=== PATIENT | male | born 1950 | race Caucasian/White ===

== ENCOUNTER 2019-08-13 15:11 | Inpatient (IN) | payer BC ==
[~2019-08-13] VITALS: Ht 172.7 cm; Wt 97.0 kg
--- NOTE | 2019-08-13 16:21 | NUR ---
Pt brought back to room in wheelchair, changed into gown and transferred to [facility]. Dr Jack at bedside and discussed plan of care with pt. Obtaining blood work, radiology completed, pt to be admitted and vascular specialist consult requested. Pt given warm blanket for comfort and call light within reach. Family at bedside. RASHAWN RN to obtain IV access and administer meds as ordered. MAMADOU.
[2019-08-13] MEDS ORDERED: PIPERACILLIN/TAZO/PMX 3.375GM 50 ML ONE (16:27)
[2019-08-13] MEDS ORDERED: PIPERACILLIN/TAZO/PMX 3.375GM 50 ML IVPB ONE (16:30)
[2019-08-13] MEDS ORDERED: SODIUM CHLORIDE FLUSH 10ML SYR IVF ONE (16:30)
[2019-08-13 16:35] LABS: BASOPHILS # (AUTO) 0.06 x10^3/uL (0-0.1); BASOPHILS % (AUTO) 0 % (0-1); EOSINOPHILS # (AUTO) 0.08 x10^3/uL (0-0.4); EOSINOPHILS % (AUTO) 1 % (1-7); LYMPHOCYTES # (AUTO) 1.66 x10^3/uL (1-3.4); LYMPHOCYTES % (AUTO) 13 % (22-44); MD NO; MEAN CORPUSCULAR HEMOGLOBIN 29.8 pg (27.5-34.5); MEAN CORPUSCULAR VOLUME 90.2 fL (81-97); MEAN PLATELET VOLUME 7.9 fL (7.4-10.4); MONOCYTES # (AUTO) 1.03 x10^3/uL (0.2-0.8); MONOCYTES % (AUTO) 8 % (2-9); NEUTROPHILS # (AUTO) 9.98 x10^3/uL (1.8-6.8); NEUTROPHILS % (AUTO) 78 % (42-75); PLATELET COUNT 327 x10^3/uL (130-400); RED BLOOD COUNT 4.87 x10^6/uL (4.38-5.82); RED CELL DISTRIBUTION WIDTH 13.4 % (9.4-14.8)
[2019-08-13 16:40] LABS: INTERNATIONAL NORMALIZED RATIO 1.16 (0.93-1.1); PROTHROMBIN TIME 12.3 Seconds (9.6-11.5)
[2019-08-13 16:42] LABS: ALBUMIN 2.9 g/dL (3.4-5.0); ANION GAP 8 mmol/L (5-15); CALCIUM 8.9 mg/dL (8.5-10.1); CHLORIDE 106 mmol/L (98-107); HCT (SEDRATE) 43.9 % (39.2-51.8)
[2019-08-13 16:49] LABS: CREATININE 1.11 mg/dL (0.7-1.3)
[2019-08-13] MEDS ORDERED: NICOTINE 14MG/24 HR PATCH.TD24 TD ONE (17:00)
[2019-08-13] MEDS ORDERED: ONDANSETRON ODT 4 MG PO PRN (17:30)
[2019-08-13] MEDS: NICOTINE 14MG/24 HR PATCH.TD24 TD SCH (17:30)
[2019-08-13] MEDS ORDERED: ONDANSETRON 2MG/ML, 2ML IVPush PRN (17:30)
--- NOTE | 2019-08-13 17:44 | NUR ---
Pt resting in [facility], [facility], denies additional needs at this time. Even chest rise and fall, watching the television. Pt is waiting for admit bed on medical floor. WCTM.
--- NOTE | 2019-08-13 17:50 | NUR ---
Report given to Tiffani TRIPP. Pt ready to trasnfer up to floor at this time. NAD, no additional needs. WCTM.
[2019-08-13] MEDS ORDERED: CARV-39 PO ×2 (18:14)
[2019-08-13] MEDS ORDERED: ATOR40TA78 PO (18:14)
[2019-08-13] MEDS ORDERED: CLOP75TA PO (18:14)
[2019-08-13] MEDS ORDERED: LISI-170 PO (18:14)
[2019-08-13] MEDS ORDERED: AMLO-150 PO (18:14)
[2019-08-13] MEDS ORDERED: ASPI81TA45 PO (18:14)
[2019-08-13] MEDS: SODIUM CHLORIDE 0.9% 1,000 ML IV SCH (18:27)
[2019-08-13 18:29] VITALS: BP 129/60
[2019-08-13] MEDS: ACETAMINOPHEN 325 MG TABLET PO PRN (18:39)
[2019-08-13] MEDS: NYSTATIN TOPICAL POWDER 15GM TP SCH (21:00)
[2019-08-13] MEDS: CLINDAMYCIN PMX 900MG/50ML 50 ML IV SCH (21:13)
[2019-08-13 21:20] VITALS: BP 145/71
[2019-08-13] MEDS: PIPERACILLIN/TAZO/PMX 3.375GM 50 ML IV SCH (22:30)
[2019-08-14] MEDS: DIPHENHYDRAMINE 25 MG CAPSULE PO PRN ×2 (00:29→20:39)
[2019-08-14] MEDS: ACETAMINOPHEN 325 MG TABLET PO PRN (00:29)
[2019-08-14 02:18] VITALS: BP 125/67
[2019-08-14] MEDS: CLINDAMYCIN PMX 900MG/50ML 50 ML IV SCH ×3 (05:08→22:54)
[2019-08-14 05:28] LABS: BASOPHILS # (AUTO) 0.02 x10^3/uL (0-0.1); BASOPHILS % (AUTO) 0 % (0-1); EOSINOPHILS # (AUTO) 0.26 x10^3/uL (0-0.4); EOSINOPHILS % (AUTO) 3 % (1-7); LYMPHOCYTES # (AUTO) 2.18 x10^3/uL (1-3.4); LYMPHOCYTES % (AUTO) 20 % (22-44); MD NO; MEAN CORPUSCULAR HEMOGLOBIN 30.3 pg (27.5-34.5); MEAN CORPUSCULAR HGB CONC 33.4 g/dL (33.2-36.2); MEAN CORPUSCULAR VOLUME 90.5 fL (81-97); MEAN PLATELET VOLUME 8.1 fL (7.4-10.4); MONOCYTES # (AUTO) 0.97 x10^3/uL (0.2-0.8); MONOCYTES % (AUTO) 9 % (2-9); NEUTROPHILS # (AUTO) 7.28 x10^3/uL (1.8-6.8); NEUTROPHILS % (AUTO) 68 % (42-75); PLATELET COUNT 277 x10^3/uL (130-400); RED BLOOD COUNT 4.15 x10^6/uL (4.38-5.82); RED CELL DISTRIBUTION WIDTH 13.3 % (9.4-14.8)
[2019-08-14 05:45] LABS: ALANINE AMINOTRANSFERASE 69 U/L (12-78); ALBUMIN 2.4 g/dL (3.4-5.0); ANION GAP 6 mmol/L (5-15); CALCIUM 8.2 mg/dL (8.5-10.1); CHLORIDE 108 mmol/L (98-107); CREATININE 1.14 mg/dL (0.7-1.3)
[2019-08-14 05:57] LABS: ALKALINE PHOSPHATASE 82 U/L (45-117); BILIRUBIN,TOTAL 0.4 mg/dL (0.2-1.0); CHOL/HDL RATIO 3.2; CHOLESTEROL, TOTAL 79 mg/dL (140-239); HDL CHOL % 32 % (26-37); HDL CHOLESTEROL (DIRECT) 25 mg/dL (40-60); LDL CHOLESTEROL,CALCULATED 39 mg/dL (54-169); LDL/HDL RATIO 1.6 (0.5-3.0); TOTAL PROTEIN 6.6 g/dL (6.4-8.2); TRIGLYCERIDES 77 mg/dL (50-200); VLDL CHOLESTEROL 15 mg/dL (0-25)
[2019-08-14] MEDS: PIPERACILLIN/TAZO/PMX 3.375GM 50 ML IV SCH ×3 (06:15→18:11)
[2019-08-14 07:30] VITALS: BP 111/63
[2019-08-14] MEDS ORDERED: GADOTERATE 10 MMOL/20 ML SYR ONE (09:00)
[2019-08-14] MEDS: NYSTATIN TOPICAL POWDER 15GM TP SCH ×2 (09:00→21:00)
[2019-08-14] MEDS: INSULIN LISPRO 100 UNITS/ML, PEN SQ-INSULIN SCH ×3 (11:00→21:00)
[2019-08-14] MEDS ORDERED: FENTANYL PF 100 MCG/2ML ONE (13:24)
[2019-08-14] MEDS ORDERED: MIDAZOLAM 1 MG/ML, 5ML ONE (13:24)
[2019-08-14] MEDS ORDERED: FLUMAZENIL 0.1 MG/1 ML, 5ML ONE ×2 (13:24)
[2019-08-14] MEDS ORDERED: NALOXONE 1 MG/ML, 2ML ONE (13:25)
[2019-08-14] MEDS ORDERED: HEPARIN 1,000 UNITS/ML, 10ML ONE (13:25)
[2019-08-14] MEDS ORDERED: PROTAMINE SULFATE 10 MG/ML, 25ML ONE (13:25)
[2019-08-14] MEDS: SODIUM CHLORIDE 0.9% 1,000 ML IV SCH ×3 (13:30→17:04)
[2019-08-14] MEDS ORDERED: LIDOCAINE 1%, 10ML ONE (13:49)
[2019-08-14 15:33] VITALS: BP 130/77
[2019-08-14] MEDS: NICOTINE 14MG/24 HR PATCH.TD24 TD SCH (16:12)
[2019-08-14 20:30] VITALS: BP 150/76
[2019-08-14] MEDS ORDERED: CARVEDILOL 25 MG TABLET PO SCH (21:00)
[2019-08-15] MEDS: PIPERACILLIN/TAZO/PMX 3.375GM 50 ML IV SCH ×4 (00:05→18:15)
[2019-08-15 00:52] VITALS: BP 114/69
[2019-08-15] MEDS: SODIUM CHLORIDE 0.9% 1,000 ML IV SCH ×3 (03:00→23:00)
[2019-08-15 05:27] LABS: BASOPHILS # (AUTO) 0.01 x10^3/uL (0-0.1); BASOPHILS % (AUTO) 0 % (0-1); EOSINOPHILS # (AUTO) 0.24 x10^3/uL (0-0.4); EOSINOPHILS % (AUTO) 3 % (1-7); LYMPHOCYTES # (AUTO) 1.07 x10^3/uL (1-3.4); LYMPHOCYTES % (AUTO) 12 % (22-44); MD NO; MEAN CORPUSCULAR HGB CONC 33.5 g/dL (33.2-36.2); MEAN CORPUSCULAR VOLUME 89.6 fL (81-97); MEAN PLATELET VOLUME 8.1 fL (7.4-10.4); MONOCYTES # (AUTO) 0.76 x10^3/uL (0.2-0.8); MONOCYTES % (AUTO) 9 % (2-9); NEUTROPHILS # (AUTO) 6.82 x10^3/uL (1.8-6.8); NEUTROPHILS % (AUTO) 77 % (42-75); PLATELET COUNT 265 x10^3/uL (130-400); RED BLOOD COUNT 4.24 x10^6/uL (4.38-5.82); RED CELL DISTRIBUTION WIDTH 13.4 % (9.4-14.8)
[2019-08-15 05:34] LABS: ANION GAP 6 mmol/L (5-15); CALCIUM 8.3 mg/dL (8.5-10.1); CHLORIDE 108 mmol/L (98-107)
[2019-08-15 05:36] LABS: CREATININE 1.04 mg/dL (0.7-1.3)
[2019-08-15] MEDS: INSULIN LISPRO 100 UNITS/ML, PEN SQ-INSULIN SCH ×4 (05:46→21:00)
[2019-08-15] MEDS: NICOTINE 14MG/24 HR PATCH.TD24 TD SCH (06:11)
[2019-08-15] MEDS: NYSTATIN TOPICAL POWDER 15GM TP SCH ×2 (06:12→20:57)
[2019-08-15] MEDS: ACETAMINOPHEN 325 MG TABLET PO PRN ×2 (06:37→20:56)
[2019-08-15] MEDS: CLINDAMYCIN PMX 900MG/50ML 50 ML IV SCH ×3 (07:19→23:14)
[2019-08-15 07:22] VITALS: BP 91/58
[2019-08-15] MEDS ORDERED: AMLODIPINE 5 MG TABLET PO SCH ×2 (09:00→21:00)
[2019-08-15] MEDS ORDERED: CLOPIDOGREL 75 MG TABLET PO SCH (09:00)
[2019-08-15] MEDS ORDERED: ATORVASTATIN 40 MG TABLET PO SCH (09:00)
[2019-08-15] MEDS ORDERED: ASPIRIN 81 MG TABLET EC PO SCH (09:00)
[2019-08-15] MEDS ORDERED: LISINOPRIL 20 MG TABLET PO SCH (09:00)
[2019-08-15] MEDS ORDERED: SODIUM CHLORIDE 0.9%, 250ML IVBOLUS ONE (09:30)
[2019-08-15 12:36] VITALS: BP 120/73
[2019-08-15] MEDS ORDERED: BISACODYL 10 MG SUPP PR PRN (18:00)
[2019-08-15] MEDS ORDERED: POLYETHYLENE GLYCOL 17 GM PACKET PO PRN (18:00)
[2019-08-15 20:37] VITALS: BP 129/67
[2019-08-15] MEDS: METHOCARBAMOL 500 MG TABLET PO PRN (20:54)
[2019-08-15] MEDS: DIPHENHYDRAMINE 25 MG CAPSULE PO PRN (20:54)
[2019-08-15] MEDS: ATORVASTATIN 40 MG TABLET PO SCH (20:55)
[2019-08-15] MEDS: CARVEDILOL 25 MG TABLET PO SCH (20:55)
[2019-08-15] MEDS: CLOPIDOGREL 75 MG TABLET PO SCH (20:55)
[2019-08-15] MEDS ORDERED: SENNA/DOCUSATE TABLET PO PRN (21:00)
[2019-08-15] MEDS: ASPIRIN 81 MG TABLET EC PO SCH (21:00)
[2019-08-16] MEDS: PIPERACILLIN/TAZO/PMX 3.375GM 50 ML IV SCH ×4 (00:38→22:12)
[2019-08-16 01:25] VITALS: BP 98/52
[2019-08-16 05:29] LABS: BASOPHILS # (AUTO) 0.02 x10^3/uL (0-0.1); BASOPHILS % (AUTO) 0 % (0-1); EOSINOPHILS # (AUTO) 0.27 x10^3/uL (0-0.4); EOSINOPHILS % (AUTO) 3 % (1-7); LYMPHOCYTES # (AUTO) 0.77 x10^3/uL (1-3.4); LYMPHOCYTES % (AUTO) 9 % (22-44); MD NO; MEAN CORPUSCULAR HEMOGLOBIN 29.7 pg (27.5-34.5); MEAN CORPUSCULAR HGB CONC 33.2 g/dL (33.2-36.2); MEAN CORPUSCULAR VOLUME 89.6 fL (81-97); MONOCYTES # (AUTO) 0.85 x10^3/uL (0.2-0.8); MONOCYTES % (AUTO) 10 % (2-9); NEUTROPHILS # (AUTO) 6.88 x10^3/uL (1.8-6.8); NEUTROPHILS % (AUTO) 78 % (42-75); PLATELET COUNT 252 x10^3/uL (130-400); RED BLOOD COUNT 4.04 x10^6/uL (4.38-5.82); RED CELL DISTRIBUTION WIDTH 13.4 % (9.4-14.8)
[2019-08-16 05:39] LABS: ANION GAP 8 mmol/L (5-15); CALCIUM 8.1 mg/dL (8.5-10.1); CHLORIDE 110 mmol/L (98-107)
[2019-08-16 05:49] LABS: CREATININE 1.12 mg/dL (0.7-1.3)
[2019-08-16] MEDS: INSULIN LISPRO 100 UNITS/ML, PEN SQ-INSULIN SCH ×4 (06:40→21:00)
[2019-08-16 07:12] VITALS: BP 123/77
[2019-08-16 08:00] VITALS: BP 119/74
[2019-08-16] MEDS: CARVEDILOL 25 MG TABLET PO SCH ×2 (08:09→22:13)
[2019-08-16] MEDS: METHOCARBAMOL 500 MG TABLET PO PRN (08:48)
[2019-08-16] MEDS: CLINDAMYCIN PMX 900MG/50ML 50 ML IV SCH ×2 (08:49→16:00)
[2019-08-16] MEDS ORDERED: LISINOPRIL 20 MG TABLET PO SCH (09:00)
[2019-08-16] MEDS: LACTATED RINGERS 1,000 ML IV SCH ×2 (11:53→17:30)
[2019-08-16] MEDS: NYSTATIN TOPICAL POWDER 15GM TP SCH ×2 (11:54→22:14)
[2019-08-16] MEDS ORDERED: LIDOCAINE 1%, 20ML ONE ×2 (14:24→18:41)
[2019-08-16] MEDS ORDERED: PROTAMINE SULFATE 10 MG/ML, 5ML ONE (14:24)
[2019-08-16] MEDS ORDERED: THROMBIN 5,000 UNIT VIAL TP ONE ×2 (14:24→18:32)
[2019-08-16] MEDS ORDERED: BACITRACIN 50,000 UNIT ONE (14:24)
[2019-08-16] MEDS ORDERED: HEPARIN 1,000 UNITS/ML, 10ML ONE ×2 (14:24→16:29)
[2019-08-16] MEDS ORDERED: CEFAZOLIN 1,000 MG ONE (15:10)
[2019-08-16] MEDS ORDERED: PROPOFOL 10 MG/ML, 20ML ONE (15:10)
[2019-08-16] MEDS ORDERED: ROCURONIUM 10MG/ML,5ML ONE (15:10)
[2019-08-16] MEDS ORDERED: FENTANYL PF 250 MCG/5ML ONE (15:12)
[2019-08-16] MEDS ORDERED: FENTANYL PF 100 MCG/2ML ONE ×2 (19:10→19:49)
[2019-08-16] MEDS ORDERED: OXYcodone 5 MG/5 ML ORAL.SOL UDC ONE ×2 (19:49→19:50)
[2019-08-16] MEDS ORDERED: HYDROmorphone 1 MG/ML, 1ML INJ ONE (19:49)
[2019-08-16] MEDS ORDERED: HYDROmorphone 2 MG/ML, 1ML IVPush PRN (20:00)
[2019-08-16] MEDS ORDERED: FENTANYL PF 100 MCG/2ML IV PRN (20:00)
[2019-08-16] MEDS ORDERED: OXYcodone 5 MG/5 ML ORAL.SOL UDC PO PRN (20:00)
[2019-08-16] MEDS ORDERED: ACETAMINOPHEN 325 MG TABLET PO PRN (21:30)
[2019-08-16] MEDS ORDERED: FENTANYL PF 100 MCG/2ML IVPush PRN (21:30)
[2019-08-16] MEDS ORDERED: ONDANSETRON 2MG/ML, 2ML IV PRN (21:30)
[2019-08-16] MEDS ORDERED: PROMETHAZINE 25 MG/ML, 1ML IM PRN (21:30)
[2019-08-16] MEDS: ENOXAPARIN 40 MG/0.4 ML SQ SCH (22:11)
[2019-08-16] MEDS: CLOPIDOGREL 75 MG TABLET PO SCH (22:13)
[2019-08-16] MEDS: ASPIRIN 81 MG TABLET EC PO SCH (22:13)
[2019-08-16] MEDS: ATORVASTATIN 40 MG TABLET PO SCH (22:13)
[2019-08-16] MEDS: NICOTINE 14MG/24 HR PATCH.TD24 TD SCH (22:13)
[2019-08-17] MEDS: CLINDAMYCIN PMX 900MG/50ML 50 ML IV SCH ×3 (00:06→15:40)
[2019-08-17 01:07] VITALS: BP 94/59
[2019-08-17] MEDS: PIPERACILLIN/TAZO/PMX 3.375GM 50 ML IV SCH ×4 (04:01→21:57)
[2019-08-17 04:33] VITALS: BP 91/54
[2019-08-17 05:16] LABS: ALBUMIN 1.9 g/dL (3.4-5.0); ANION GAP 6 mmol/L (5-15); CALCIUM 7.7 mg/dL (8.5-10.1); CHLORIDE 110 mmol/L (98-107); CREATININE 1.02 mg/dL (0.7-1.3)
[2019-08-17 05:36] LABS: BASOPHILS % (AUTO) 0 % (0-1); EOSINOPHILS # (AUTO) 0.09 x10^3/uL (0-0.4); EOSINOPHILS % (AUTO) 1 % (1-7); LYMPHOCYTES # (AUTO) 0.71 x10^3/uL (1-3.4); LYMPHOCYTES % (AUTO) 6 % (22-44); MD NO; MEAN CORPUSCULAR HGB CONC 33.1 g/dL (33.2-36.2); MEAN CORPUSCULAR VOLUME 90.6 fL (81-97); MONOCYTES # (AUTO) 0.64 x10^3/uL (0.2-0.8); MONOCYTES % (AUTO) 5 % (2-9); NEUTROPHILS # (AUTO) 10.85 x10^3/uL (1.8-6.8); NEUTROPHILS % (AUTO) 88 % (42-75); PLATELET COUNT 226 x10^3/uL (130-400); RED BLOOD COUNT 3.49 x10^6/uL (4.38-5.82); RED CELL DISTRIBUTION WIDTH 13.3 % (9.4-14.8)
[2019-08-17 06:50] VITALS: BP 90/57
[2019-08-17] MEDS: INSULIN LISPRO 100 UNITS/ML, PEN SQ-INSULIN SCH ×4 (07:00→21:00)
[2019-08-17 08:24] VITALS: BP 98/63
[2019-08-17] MEDS: LACTATED RINGERS 1,000 ML IV SCH ×2 (08:33→21:57)
[2019-08-17] MEDS: SODIUM CHLORIDE FLUSH 10ML SYR IVF SCH ×2 (09:00→21:00)
[2019-08-17] MEDS: NYSTATIN TOPICAL POWDER 15GM TP SCH ×2 (10:44→21:00)
[2019-08-17 12:41] VITALS: BP 99/63
[2019-08-17 21:55] VITALS: BP 103/65
[2019-08-17] MEDS: CLOPIDOGREL 75 MG TABLET PO SCH (21:57)
[2019-08-17] MEDS: ASPIRIN 81 MG TABLET EC PO SCH (21:57)
[2019-08-17] MEDS: ATORVASTATIN 40 MG TABLET PO SCH (21:57)
[2019-08-17] MEDS: NICOTINE 14MG/24 HR PATCH.TD24 TD SCH (21:57)
[2019-08-17] MEDS: ENOXAPARIN 40 MG/0.4 ML SQ SCH (21:57)
[2019-08-17] MEDS: METHOCARBAMOL 500 MG TABLET PO PRN (21:57)
[2019-08-18] MEDS: CLINDAMYCIN PMX 900MG/50ML 50 ML IV SCH ×2 (00:07→08:58)
[2019-08-18 02:18] VITALS: BP 104/65
[2019-08-18] MEDS: PIPERACILLIN/TAZO/PMX 3.375GM 50 ML IV SCH ×2 (03:43→10:03)
[2019-08-18 05:32] LABS: BASOPHILS # (AUTO) 0.02 x10^3/uL (0-0.1); BASOPHILS % (AUTO) 0 % (0-1); EOSINOPHILS # (AUTO) 0.21 x10^3/uL (0-0.4); EOSINOPHILS % (AUTO) 2 % (1-7); LYMPHOCYTES # (AUTO) 0.93 x10^3/uL (1-3.4); LYMPHOCYTES % (AUTO) 7 % (22-44); MD NO; MEAN CORPUSCULAR HEMOGLOBIN 30.1 pg (27.5-34.5); MEAN CORPUSCULAR HGB CONC 33.8 g/dL (33.2-36.2); MEAN CORPUSCULAR VOLUME 89.2 fL (81-97); MEAN PLATELET VOLUME 8.1 fL (7.4-10.4); MONOCYTES # (AUTO) 1.13 x10^3/uL (0.2-0.8); MONOCYTES % (AUTO) 9 % (2-9); NEUTROPHILS # (AUTO) 10.83 x10^3/uL (1.8-6.8); NEUTROPHILS % (AUTO) 83 % (42-75); PLATELET COUNT 222 x10^3/uL (130-400); RED BLOOD COUNT 3.32 x10^6/uL (4.38-5.82); RED CELL DISTRIBUTION WIDTH 13.7 % (9.4-14.8)
[2019-08-18 05:39] LABS: ANION GAP 7 mmol/L (5-15); CALCIUM 7.6 mg/dL (8.5-10.1); CHLORIDE 108 mmol/L (98-107)
[2019-08-18 05:41] LABS: CREATININE 1.31 mg/dL (0.7-1.3)
[2019-08-18] MEDS: INSULIN LISPRO 100 UNITS/ML, PEN SQ-INSULIN SCH ×4 (06:23→21:00)
[2019-08-18 06:57] VITALS: BP 94/61
[2019-08-18] MEDS: NYSTATIN TOPICAL POWDER 15GM TP SCH ×2 (08:58→21:56)
[2019-08-18] MEDS: SODIUM CHLORIDE FLUSH 10ML SYR IVF SCH ×2 (08:58→21:55)
[2019-08-18] MEDS ORDERED: VANCOMYCIN PER PHARMACY MC PRN (11:00)
[2019-08-18] MEDS ORDERED: PHARMACOKINETIC MONITORING MC PRN (11:00)
[2019-08-18] MEDS: CEFTRIAXONE PMX 1GM/50ML 50 ML IV SCH (11:23)
[2019-08-18] MEDS ORDERED: VANCOMYCIN 1,700 MG in SODIUM CHLORIDE 0.9% 250 ML IV SCH (11:30)
[2019-08-18 15:07] VITALS: BP 128/79
[2019-08-18 18:41] VITALS: BP 131/77
[2019-08-18] MEDS: ATORVASTATIN 40 MG TABLET PO SCH (21:55)
[2019-08-18] MEDS: CLOPIDOGREL 75 MG TABLET PO SCH (21:55)
[2019-08-18] MEDS: ASPIRIN 81 MG TABLET EC PO SCH (21:55)
[2019-08-18] MEDS: ENOXAPARIN 40 MG/0.4 ML SQ SCH (21:55)
[2019-08-18] MEDS: NICOTINE 14MG/24 HR PATCH.TD24 TD SCH (21:56)
[2019-08-19 01:55] VITALS: BP 123/60
[2019-08-19] MEDS: TEMAZEPAM 15 MG CAPSULE PO PRN (02:04)
[2019-08-19 05:20] LABS: BASOPHILS # (AUTO) 0.04 x10^3/uL (0-0.1); BASOPHILS % (AUTO) 0 % (0-1); EOSINOPHILS % (AUTO) 2 % (1-7); LYMPHOCYTES # (AUTO) 1.29 x10^3/uL (1-3.4); LYMPHOCYTES % (AUTO) 11 % (22-44); MD NO; MEAN CORPUSCULAR HEMOGLOBIN 29.8 pg (27.5-34.5); MEAN CORPUSCULAR HGB CONC 33.2 g/dL (33.2-36.2); MEAN CORPUSCULAR VOLUME 89.6 fL (81-97); MEAN PLATELET VOLUME 7.9 fL (7.4-10.4); MONOCYTES # (AUTO) 1.11 x10^3/uL (0.2-0.8); MONOCYTES % (AUTO) 9 % (2-9); NEUTROPHILS % (AUTO) 78 % (42-75); PLATELET COUNT 230 x10^3/uL (130-400); RED CELL DISTRIBUTION WIDTH 13.4 % (9.4-14.8)
[2019-08-19 05:28] LABS: ANION GAP 6 mmol/L (5-15); CALCIUM 8.1 mg/dL (8.5-10.1); CHLORIDE 108 mmol/L (98-107); CREATININE 0.87 mg/dL (0.7-1.3)
[2019-08-19] MEDS: INSULIN LISPRO 100 UNITS/ML, PEN SQ-INSULIN SCH ×4 (07:00→20:48)
[2019-08-19 07:03] VITALS: BP 119/67
[2019-08-19] MEDS: SODIUM CHLORIDE FLUSH 10ML SYR IVF SCH ×2 (08:22→21:00)
[2019-08-19] MEDS: NYSTATIN TOPICAL POWDER 15GM TP SCH ×2 (08:22→20:48)
[2019-08-19] MEDS: VANCOMYCIN 1,700 MG in SODIUM CHLORIDE 0.9% 250 ML IV SCH (09:36)
[2019-08-19] MEDS: CEFTRIAXONE PMX 1GM/50ML 50 ML IV SCH (11:15)
[2019-08-19 13:32] VITALS: BP 141/77
[2019-08-19 16:08] LABS: HCT (SEDRATE) 32.3 % (39.2-51.8)
[2019-08-19 18:39] VITALS: BP 123/72
[2019-08-19] MEDS: ATORVASTATIN 40 MG TABLET PO SCH (20:47)
[2019-08-19] MEDS: CLOPIDOGREL 75 MG TABLET PO SCH (20:47)
[2019-08-19] MEDS: ENOXAPARIN 40 MG/0.4 ML SQ SCH (20:47)
[2019-08-19] MEDS: ASPIRIN 81 MG TABLET EC PO SCH (20:47)
[2019-08-19] MEDS: NICOTINE 14MG/24 HR PATCH.TD24 TD SCH (20:48)
[2019-08-20 01:05] VITALS: BP 133/74
[2019-08-20] MEDS: VANCOMYCIN 1,700 MG in SODIUM CHLORIDE 0.9% 250 ML IV SCH (03:05)
[2019-08-20 05:21] LABS: BASOPHILS # (AUTO) 0.03 x10^3/uL (0-0.1); BASOPHILS % (AUTO) 0 % (0-1); EOSINOPHILS # (AUTO) 0.26 x10^3/uL (0-0.4); EOSINOPHILS % (AUTO) 3 % (1-7); LYMPHOCYTES # (AUTO) 1.79 x10^3/uL (1-3.4); LYMPHOCYTES % (AUTO) 18 % (22-44); MD NO; MEAN CORPUSCULAR HEMOGLOBIN 29.9 pg (27.5-34.5); MEAN CORPUSCULAR HGB CONC 33.5 g/dL (33.2-36.2); MEAN CORPUSCULAR VOLUME 89.2 fL (81-97); MONOCYTES # (AUTO) 0.98 x10^3/uL (0.2-0.8); MONOCYTES % (AUTO) 10 % (2-9); NEUTROPHILS # (AUTO) 6.89 x10^3/uL (1.8-6.8); NEUTROPHILS % (AUTO) 69 % (42-75); PLATELET COUNT 246 x10^3/uL (130-400); RED BLOOD COUNT 3.48 x10^6/uL (4.38-5.82); RED CELL DISTRIBUTION WIDTH 13.6 % (9.4-14.8)
[2019-08-20] MEDS: INSULIN LISPRO 100 UNITS/ML, PEN SQ-INSULIN SCH ×4 (07:00→21:00)
[2019-08-20 07:39] VITALS: BP 113/76
[2019-08-20] MEDS: SODIUM CHLORIDE FLUSH 10ML SYR IVF SCH ×2 (09:38→21:06)
[2019-08-20] MEDS: NYSTATIN TOPICAL POWDER 15GM TP SCH ×2 (09:40→21:06)
[2019-08-20] MEDS: CEFTAROLINE 600 MG in SODIUM CHLORIDE 0.9% 100 ML IV SCH (12:20)
[2019-08-20 14:00] VITALS: BP 123/68
[2019-08-20 19:14] VITALS: BP 162/90
[2019-08-20] MEDS: CLOPIDOGREL 75 MG TABLET PO SCH (21:00)
[2019-08-20] MEDS: NICOTINE 14MG/24 HR PATCH.TD24 TD SCH (21:04)
[2019-08-20] MEDS: ASPIRIN 81 MG TABLET EC PO SCH (21:04)
[2019-08-20] MEDS: ATORVASTATIN 40 MG TABLET PO SCH (21:04)
[2019-08-20] MEDS: ENOXAPARIN 40 MG/0.4 ML SQ SCH (21:21)
[2019-08-21] MEDS: CEFTAROLINE 600 MG in SODIUM CHLORIDE 0.9% 100 ML IV SCH ×3 (00:32→23:47)
[2019-08-21 02:54] VITALS: BP 161/80
[2019-08-21] MEDS: INSULIN LISPRO 100 UNITS/ML, PEN SQ-INSULIN SCH ×4 (07:00→21:24)
[2019-08-21 07:02] VITALS: BP 164/59
[2019-08-21] MEDS: SODIUM CHLORIDE FLUSH 10ML SYR IVF SCH ×2 (07:54→21:15)
[2019-08-21] MEDS: NYSTATIN TOPICAL POWDER 15GM TP SCH ×2 (07:54→21:32)
[2019-08-21] MEDS ORDERED: MIDAZOLAM 1 MG/ML, 2ML ONE ×2 (08:04→14:11)
[2019-08-21] MEDS ORDERED: FENTANYL PF 100 MCG/2ML ONE ×2 (08:04→15:50)
[2019-08-21] MEDS ORDERED: FENTANYL PF 250 MCG/5ML ONE (14:12)
[2019-08-21] MEDS ORDERED: SUCCINYLCHOLINE 20 MG/ML, 10ML ONE (14:13)
[2019-08-21] MEDS ORDERED: PROPOFOL 10 MG/ML, 20ML ONE (14:17)
[2019-08-21] MEDS ORDERED: PHENYLEPHRINE 10 MG/ML ONE (14:17)
[2019-08-21] MEDS ORDERED: DEXAMETHASONE 4 MG/ML, 1ML ONE (14:30)
[2019-08-21] MEDS ORDERED: ONDANSETRON 2MG/ML, 2ML IV PRN (15:00)
[2019-08-21] MEDS ORDERED: OXYcodone 5 MG/5 ML ORAL.SOL UDC PO PRN (15:00)
[2019-08-21] MEDS ORDERED: hydrALAzine 20 MG/ML, 1ML IV PRN (15:00)
[2019-08-21] MEDS ORDERED: LABETALOL 5MG/ML, 20ML IV PRN (15:00)
[2019-08-21] MEDS ORDERED: ONDANSETRON 2MG/ML, 2ML ONE (15:00)
[2019-08-21] MEDS ORDERED: EPHEDRINE 50 MG/ML, 1ML IVPush PRN (15:00)
[2019-08-21] MEDS ORDERED: ONDANSETRON ODT 8 MG PO PRN (15:00)
[2019-08-21] MEDS ORDERED: MEPERIDINE/PF 25MG/ML,1ML IVPush PRN (15:00)
[2019-08-21] MEDS ORDERED: ACETAMINOPHEN 325 MG TABLET PO PRN (15:00)
[2019-08-21] MEDS ORDERED: DIAZEPAM 5 MG/ML, 2ML IVPush PRN (15:00)
[2019-08-21] MEDS ORDERED: MIDAZOLAM 1 MG/ML, 2ML IV PRN (15:00)
[2019-08-21] MEDS ORDERED: ALBUTEROL SULFATE 2.5 MG/3 ML NPPB PRN (15:00)
[2019-08-21] MEDS ORDERED: HALOPERIDOL 5 MG/ML IV PRN (15:00)
[2019-08-21] MEDS ORDERED: PROMETHAZINE 25 MG/ML, 1ML IV PRN (15:00)
[2019-08-21] MEDS ORDERED: PROMETHAZINE 12.5 MG SUPP PR PRN (15:00)
[2019-08-21] MEDS: FENTANYL PF 100 MCG/2ML IV PRN ×2 (15:40→16:00)
[2019-08-21] MEDS ORDERED: LABETALOL 5MG/ML, 20ML ONE (15:42)
[2019-08-21] MEDS ORDERED: HYDROmorphone 1 MG/ML, 1ML INJ ONE (15:50)
[2019-08-21] MEDS ORDERED: AMIODARONE 450 MG in DEXTROSE 5% 241 ML IV SCH (16:06)
[2019-08-21] MEDS: HYDROmorphone 2 MG/ML, 1ML IVPush PRN ×2 (16:10→16:30)
[2019-08-21] MEDS ORDERED: AMIODARONE 150 MG in DEXTROSE 5% 100 ML IV ONE (16:30)
[2019-08-21] MEDS ORDERED: FILTER 0.22 MICRON FOR AMIODARONE IV PRN (16:30)
[2019-08-21] MEDS ORDERED: OXYcodone 5 MG/5 ML ORAL.SOL UDC ONE (16:37)
[2019-08-21 17:27] VITALS: BP 102/61
[2019-08-21 17:34] VITALS: BP 114/64
[2019-08-21] MEDS: AMIODARONE 450 MG in DEXTROSE 5% 241 ML IV SCH (18:06)
[2019-08-21] MEDS ORDERED: HYDROcodone/APAP 5/325 TABLET ONE (18:18)
[2019-08-21] MEDS ORDERED: HYDROcodone/APAP 10/325 MG TABLET ONE (18:19)
[2019-08-21] MEDS: CARVEDILOL 6.25 MG TABLET PO SCH (18:23)
[2019-08-21 21:11] VITALS: BP 106/66
[2019-08-21] MEDS: ATORVASTATIN 40 MG TABLET PO SCH (21:15)
[2019-08-21] MEDS: ASPIRIN 81 MG TABLET EC PO SCH (21:15)
[2019-08-21] MEDS: CLOPIDOGREL 75 MG TABLET PO SCH (21:15)
[2019-08-21] MEDS: ENOXAPARIN 40 MG/0.4 ML SQ SCH (21:16)
[2019-08-21] MEDS: NICOTINE 14MG/24 HR PATCH.TD24 TD SCH (21:19)
[2019-08-22 00:04] VITALS: BP 112/66
[2019-08-22] MEDS: AMIODARONE 450 MG in DEXTROSE 5% 241 ML IV SCH (03:32)
[2019-08-22 04:05] VITALS: BP 113/69
[2019-08-22] MEDS: CARVEDILOL 6.25 MG TABLET PO SCH ×2 (05:43→17:30)
[2019-08-22 06:20] LABS: ALANINE AMINOTRANSFERASE 56 U/L (12-78); ALBUMIN 1.9 g/dL (3.4-5.0); ANION GAP 6 mmol/L (5-15); CALCIUM 7.8 mg/dL (8.5-10.1); CHLORIDE 104 mmol/L (98-107); CREATININE 1.31 mg/dL (0.7-1.3)
[2019-08-22 06:23] LABS: ALKALINE PHOSPHATASE 63 U/L (45-117); BILIRUBIN,TOTAL 0.3 mg/dL (0.2-1.0); TOTAL PROTEIN 6.3 g/dL (6.4-8.2)
[2019-08-22 06:26] LABS: MEAN CORPUSCULAR HEMOGLOBIN 29.8 pg (27.5-34.5); MEAN CORPUSCULAR HGB CONC 33.4 g/dL (33.2-36.2); MEAN CORPUSCULAR VOLUME 89.3 fL (81-97); MEAN PLATELET VOLUME 8.1 fL (7.4-10.4); PLATELET COUNT 308 x10^3/uL (130-400); RED BLOOD COUNT 3.51 x10^6/uL (4.38-5.82); RED CELL DISTRIBUTION WIDTH 14.1 % (9.4-14.8)
[2019-08-22 07:00] LABS: MD YES
[2019-08-22 07:01] VITALS: BP 106/69
[2019-08-22 07:02] LABS: BAND#(MANUAL) 0.56 x10^3/uL; BANDS%(MANUAL) 3 % (0-7); LYMPH#(MANUAL) 1.67 x10^3/uL (1-3.4); LYMPHS% (MANUAL) 9 % (22-44); MONOS% (MANUAL) 7 % (2-9); SEG#(MANUAL) 15.07 x10^3/uL (1.8-6.8); SEGS% (MANUAL) 81 % (42-75)
[2019-08-22 07:16] LABS: <PLATELET ESTIMATE> ADEQUATE; <PLT MORPHOLOGY> NORMAL PLT MORPH; ANISOCYTOSIS 1+
[2019-08-22] MEDS: INSULIN LISPRO 100 UNITS/ML, PEN SQ-INSULIN SCH ×4 (07:47→21:15)
[2019-08-22] MEDS: NYSTATIN TOPICAL POWDER 15GM TP SCH ×2 (08:10→21:16)
[2019-08-22] MEDS: SODIUM CHLORIDE FLUSH 10ML SYR IVF SCH ×2 (08:11→21:10)
[2019-08-22] MEDS ORDERED: HYDROcodone/APAP 10/325 MG TABLET ONE ×4 (10:52→23:48)
[2019-08-22] MEDS ORDERED: HYDROcodone/APAP 5/325 TABLET ONE ×4 (10:52→23:48)
[2019-08-22] MEDS: CEFTAROLINE 600 MG in SODIUM CHLORIDE 0.9% 100 ML IV SCH (12:01)
[2019-08-22 12:48] VITALS: BP 115/66
[2019-08-22 19:42] VITALS: BP 120/65
[2019-08-22] MEDS ORDERED: AMIODARONE 200 MG TABLET PO SCH (21:00)
[2019-08-22] MEDS: ATORVASTATIN 40 MG TABLET PO SCH (21:11)
[2019-08-22] MEDS: CLOPIDOGREL 75 MG TABLET PO SCH (21:11)
[2019-08-22] MEDS: ASPIRIN 81 MG TABLET EC PO SCH (21:12)
[2019-08-22] MEDS: APIXABAN 5 MG TABLET PO SCH (21:14)
[2019-08-22] MEDS: ENOXAPARIN 40 MG/0.4 ML SQ SCH (21:14)
[2019-08-22] MEDS: NICOTINE 14MG/24 HR PATCH.TD24 TD SCH (21:16)
[2019-08-23] MEDS: CEFTAROLINE 600 MG in SODIUM CHLORIDE 0.9% 100 ML IV SCH ×2 (00:11→11:41)
[2019-08-23 03:25] VITALS: BP 111/67
[2019-08-23] MEDS ORDERED: HYDROcodone/APAP 10/325 MG TABLET ONE (04:45)
[2019-08-23] MEDS ORDERED: HYDROcodone/APAP 5/325 TABLET ONE (04:45)
[2019-08-23] MEDS: CARVEDILOL 6.25 MG TABLET PO SCH ×2 (05:24→17:04)
[2019-08-23 06:01] LABS: ANION GAP 7 mmol/L (5-15); CALCIUM 7.6 mg/dL (8.5-10.1); CHLORIDE 102 mmol/L (98-107); CREATININE 1.47 mg/dL (0.7-1.3)
[2019-08-23] MEDS: INSULIN LISPRO 100 UNITS/ML, PEN SQ-INSULIN SCH ×4 (07:00→21:00)
[2019-08-23 07:50] VITALS: BP 151/73
[2019-08-23] MEDS: VARENICLINE 1MG TABLET PO SCH (09:00)
[2019-08-23] MEDS: AMIODARONE 200 MG TABLET PO SCH ×2 (09:09→21:35)
[2019-08-23] MEDS: APIXABAN 5 MG TABLET PO SCH ×2 (09:09→21:36)
[2019-08-23] MEDS: NYSTATIN TOPICAL POWDER 15GM TP SCH ×3 (09:12→22:56)
[2019-08-23] MEDS: SODIUM CHLORIDE FLUSH 10ML SYR IVF SCH ×2 (09:13→21:42)
[2019-08-23 09:16] LABS: MEAN CORPUSCULAR HEMOGLOBIN 29.9 pg (27.5-34.5); MEAN CORPUSCULAR HGB CONC 32.9 g/dL (33.2-36.2); MEAN CORPUSCULAR VOLUME 90.9 fL (81-97); MEAN PLATELET VOLUME 7.9 fL (7.4-10.4); PLATELET COUNT 343 x10^3/uL (130-400); RED BLOOD COUNT 3.63 x10^6/uL (4.38-5.82); RED CELL DISTRIBUTION WIDTH 13.8 % (9.4-14.8)
[2019-08-23 09:56] LABS: BASOPHILS # (AUTO) 0.01 x10^3/uL (0-0.1); BASOPHILS % (AUTO) 0 % (0-1); EOSINOPHILS % (AUTO) 1 % (1-7); LYMPHOCYTES # (AUTO) 3.35 x10^3/uL (1-3.4); LYMPHOCYTES % (AUTO) 20 % (22-44); MD SCAN; MONOCYTES % (AUTO) 8 % (2-9); NEUTROPHILS % (AUTO) 72 % (42-75)
[2019-08-23 12:35] VITALS: BP 121/70
[2019-08-23] MEDS: LISINOPRIL 5 MG TABLET PO SCH (17:04)
[2019-08-23] MEDS: NICOTINE 7 MG/24 HR PATCH.TD24 TD SCH (17:05)
[2019-08-23 19:12] VITALS: BP 133/77
[2019-08-23] MEDS: ATORVASTATIN 40 MG TABLET PO SCH (21:36)
[2019-08-23] MEDS: CLOPIDOGREL 75 MG TABLET PO SCH (21:36)
[2019-08-23] MEDS: ASPIRIN 81 MG TABLET EC PO SCH (21:36)
[2019-08-23] MEDS: ENOXAPARIN 40 MG/0.4 ML SQ SCH (21:37)
[2019-08-24] VITALS (8 sets, daily range): BP systolic 96–185; BP diastolic 55–71
[2019-08-24] MEDS: CEFTAROLINE 600 MG in SODIUM CHLORIDE 0.9% 100 ML IV SCH ×2 (00:23→12:22)
[2019-08-24] MEDS: CARVEDILOL 6.25 MG TABLET PO SCH ×2 (06:00→18:29)
[2019-08-24 06:11] LABS: BASOPHILS # (AUTO) 0.02 x10^3/uL (0-0.1); BASOPHILS % (AUTO) 0 % (0-1); EOSINOPHILS # (AUTO) 0.24 x10^3/uL (0-0.4); EOSINOPHILS % (AUTO) 2 % (1-7); LYMPHOCYTES # (AUTO) 2.53 x10^3/uL (1-3.4); LYMPHOCYTES % (AUTO) 21 % (22-44); MD NO; MEAN CORPUSCULAR HEMOGLOBIN 29.4 pg (27.5-34.5); MEAN CORPUSCULAR HGB CONC 32.8 g/dL (33.2-36.2); MEAN CORPUSCULAR VOLUME 89.6 fL (81-97); MEAN PLATELET VOLUME 8.1 fL (7.4-10.4); MONOCYTES # (AUTO) 1.12 x10^3/uL (0.2-0.8); MONOCYTES % (AUTO) 9 % (2-9); NEUTROPHILS # (AUTO) 7.98 x10^3/uL (1.8-6.8); NEUTROPHILS % (AUTO) 67 % (42-75); PLATELET COUNT 325 x10^3/uL (130-400); RED BLOOD COUNT 3.43 x10^6/uL (4.38-5.82); RED CELL DISTRIBUTION WIDTH 13.9 % (9.4-14.8)
[2019-08-24 06:12] LABS: ANION GAP 7 mmol/L (5-15); CHLORIDE 106 mmol/L (98-107)
[2019-08-24 06:13] LABS: CREATININE 1.17 mg/dL (0.7-1.3)
[2019-08-24] MEDS: INSULIN LISPRO 100 UNITS/ML, PEN SQ-INSULIN SCH ×4 (08:29→20:49)
[2019-08-24] MEDS ORDERED: REGADENOSON 0.4 MG/5 ML SYRINGE ONE (08:32)
[2019-08-24] MEDS: VARENICLINE 1MG TABLET PO SCH (08:54)
[2019-08-24] MEDS: LISINOPRIL 5 MG TABLET PO SCH (08:55)
[2019-08-24] MEDS: NYSTATIN TOPICAL POWDER 15GM TP SCH ×2 (08:55→20:49)
[2019-08-24] MEDS: SODIUM CHLORIDE FLUSH 10ML SYR IVF SCH ×2 (08:56→20:49)
[2019-08-24] MEDS ORDERED: AMIODARONE 200 MG TABLET PO SCH (09:00)
[2019-08-24] MEDS: APIXABAN 5 MG TABLET PO SCH ×2 (12:22→20:49)
[2019-08-24] MEDS: SPIRONOLACTONE 25 MG TABLET PO SCH (16:44)
[2019-08-24] MEDS: NICOTINE 7 MG/24 HR PATCH.TD24 TD SCH (16:46)
[2019-08-24] MEDS: ASPIRIN 81 MG TABLET EC PO SCH (20:48)
[2019-08-24] MEDS: CLOPIDOGREL 75 MG TABLET PO SCH (20:49)
[2019-08-24] MEDS: ATORVASTATIN 40 MG TABLET PO SCH (20:49)
[2019-08-25] VITALS: BP 116/66
[2019-08-25] MEDS: CEFTAROLINE 600 MG in SODIUM CHLORIDE 0.9% 100 ML IV SCH ×2 (00:05→11:57)
[2019-08-25 05:07] LABS: BASOPHILS # (AUTO) 0.05 x10^3/uL (0-0.1); BASOPHILS % (AUTO) 0 % (0-1); EOSINOPHILS # (AUTO) 0.15 x10^3/uL (0-0.4); EOSINOPHILS % (AUTO) 1 % (1-7); LYMPHOCYTES # (AUTO) 2.19 x10^3/uL (1-3.4); LYMPHOCYTES % (AUTO) 16 % (22-44); MD NO; MEAN CORPUSCULAR HGB CONC 33.6 g/dL (33.2-36.2); MEAN CORPUSCULAR VOLUME 89.4 fL (81-97); MONOCYTES # (AUTO) 1.28 x10^3/uL (0.2-0.8); MONOCYTES % (AUTO) 9 % (2-9); NEUTROPHILS # (AUTO) 9.91 x10^3/uL (1.8-6.8); NEUTROPHILS % (AUTO) 73 % (42-75); PLATELET COUNT 337 x10^3/uL (130-400); RED BLOOD COUNT 3.41 x10^6/uL (4.38-5.82); RED CELL DISTRIBUTION WIDTH 13.7 % (9.4-14.8)
[2019-08-25 05:18] LABS: ANION GAP 5 mmol/L (5-15); CALCIUM 7.9 mg/dL (8.5-10.1); CHLORIDE 108 mmol/L (98-107)
[2019-08-25 05:19] LABS: CREATININE 1.13 mg/dL (0.7-1.3)
[2019-08-25] MEDS: INSULIN LISPRO 100 UNITS/ML, PEN SQ-INSULIN SCH ×4 (07:00→20:51)
[2019-08-25 07:01] VITALS: BP 116/68
[2019-08-25] MEDS: SODIUM CHLORIDE FLUSH 10ML SYR IVF SCH ×2 (08:13→20:34)
[2019-08-25] MEDS: SPIRONOLACTONE 25 MG TABLET PO SCH (08:13)
[2019-08-25] MEDS: LISINOPRIL 5 MG TABLET PO SCH ×2 (08:14→20:35)
[2019-08-25] MEDS: APIXABAN 5 MG TABLET PO SCH ×2 (08:14→20:35)
[2019-08-25] MEDS: NYSTATIN TOPICAL POWDER 15GM TP SCH ×2 (08:14→20:36)
[2019-08-25] MEDS: VARENICLINE 1MG TABLET PO SCH ×2 (08:14→20:35)
[2019-08-25] MEDS: CARVEDILOL 6.25 MG TABLET PO SCH ×2 (08:46→18:23)
[2019-08-25 11:36] VITALS: BP 110/58
[2019-08-25 12:42] VITALS: BP 147/64
[2019-08-25] MEDS: NICOTINE 7 MG/24 HR PATCH.TD24 TD SCH (15:36)
[2019-08-25] MEDS ORDERED: CALCIUM CARBONATE 500 MG TAB.CHEW PO PRN (20:30)
[2019-08-25 20:31] VITALS: BP 122/59
[2019-08-25] MEDS: CLOPIDOGREL 75 MG TABLET PO SCH (20:35)
[2019-08-25] MEDS: ASPIRIN 81 MG TABLET EC PO SCH (20:35)
[2019-08-25] MEDS: ATORVASTATIN 40 MG TABLET PO SCH (20:35)
[2019-08-26] MEDS: CEFTAROLINE 600 MG in SODIUM CHLORIDE 0.9% 100 ML IV SCH (00:15)
[2019-08-26 00:22] VITALS: BP 105/54
[2019-08-26] MEDS: TEMAZEPAM 15 MG CAPSULE PO PRN (00:25)
[2019-08-26] MEDS: CARVEDILOL 6.25 MG TABLET PO SCH (05:35)
[2019-08-26 06:10] LABS: BASOPHILS # (AUTO) 0.03 x10^3/uL (0-0.1); BASOPHILS % (AUTO) 0 % (0-1); EOSINOPHILS # (AUTO) 0.24 x10^3/uL (0-0.4); EOSINOPHILS % (AUTO) 2 % (1-7); LYMPHOCYTES # (AUTO) 2.46 x10^3/uL (1-3.4); LYMPHOCYTES % (AUTO) 21 % (22-44); MD NO; MEAN CORPUSCULAR HEMOGLOBIN 29.7 pg (27.5-34.5); MEAN CORPUSCULAR HGB CONC 33.1 g/dL (33.2-36.2); MEAN CORPUSCULAR VOLUME 89.7 fL (81-97); MEAN PLATELET VOLUME 8.2 fL (7.4-10.4); MONOCYTES % (AUTO) 10 % (2-9); NEUTROPHILS # (AUTO) 7.71 x10^3/uL (1.8-6.8); NEUTROPHILS % (AUTO) 67 % (42-75); PLATELET COUNT 306 x10^3/uL (130-400); RED BLOOD COUNT 3.22 x10^6/uL (4.38-5.82); RED CELL DISTRIBUTION WIDTH 13.8 % (9.4-14.8)
[2019-08-26 06:16] LABS: HCT (SEDRATE) 28.8 % (39.2-51.8)
[2019-08-26 06:18] LABS: CHLORIDE 108 mmol/L (98-107)
[2019-08-26 06:37] LABS: ALANINE AMINOTRANSFERASE 41 U/L (12-78); ALKALINE PHOSPHATASE 63 U/L (45-117); ANION GAP 7 mmol/L (5-15); BILIRUBIN,TOTAL 0.4 mg/dL (0.2-1.0); CALCIUM 8.2 mg/dL (8.5-10.1); CREATININE 1.16 mg/dL (0.7-1.3); TOTAL PROTEIN 6.3 g/dL (6.4-8.2)
[2019-08-26 07:02] VITALS: BP 103/45
[2019-08-26] MEDS: INSULIN LISPRO 100 UNITS/ML, PEN SQ-INSULIN SCH ×4 (08:35→20:39)
[2019-08-26] MEDS: VARENICLINE 1MG TABLET PO SCH ×2 (08:36→20:37)
[2019-08-26] MEDS: LISINOPRIL 5 MG TABLET PO SCH ×2 (08:36→20:37)
[2019-08-26] MEDS: SODIUM CHLORIDE FLUSH 10ML SYR IVF SCH ×2 (08:37→19:47)
[2019-08-26] MEDS: SPIRONOLACTONE 25 MG TABLET PO SCH (08:37)
[2019-08-26] MEDS: NYSTATIN TOPICAL POWDER 15GM TP SCH ×2 (08:38→20:38)
[2019-08-26] MEDS ORDERED: CEFTAZIDIME 2,000 MG in SODIUM CHLORIDE 0.9% 50 ML IV SCH (10:30)
[2019-08-26] MEDS ORDERED: CEFTAZIDIME PMX 2 GM/50ML 50 ML IV SCH (10:30)
[2019-08-26] MEDS: APIXABAN 5 MG TABLET PO SCH ×2 (10:52→20:36)
[2019-08-26] MEDS: CEFTAZIDIME 2,000 MG in SODIUM CHLORIDE 0.9% 50 ML IV SCH ×2 (12:08→19:44)
[2019-08-26 12:35] VITALS: BP 129/52
[2019-08-26] MEDS: NICOTINE 7 MG/24 HR PATCH.TD24 TD SCH (17:26)
[2019-08-26 18:46] VITALS: BP 130/66
[2019-08-26] MEDS ORDERED: HYDROcodone/APAP 5/325 TABLET ONE (20:24)
[2019-08-26] MEDS: ASPIRIN 81 MG TABLET EC PO SCH (20:36)
[2019-08-26] MEDS: CLOPIDOGREL 75 MG TABLET PO SCH (20:36)
[2019-08-26] MEDS: ATORVASTATIN 40 MG TABLET PO SCH (20:36)
[2019-08-27 01:54] VITALS: BP 119/60
[2019-08-27] MEDS: CEFTAZIDIME 2,000 MG in SODIUM CHLORIDE 0.9% 50 ML IV SCH ×3 (04:05→19:56)
[2019-08-27 05:52] LABS: BASOPHILS # (AUTO) 0.04 x10^3/uL (0-0.1); BASOPHILS % (AUTO) 0 % (0-1); EOSINOPHILS # (AUTO) 0.23 x10^3/uL (0-0.4); EOSINOPHILS % (AUTO) 2 % (1-7); LYMPHOCYTES # (AUTO) 2.03 x10^3/uL (1-3.4); LYMPHOCYTES % (AUTO) 19 % (22-44); MD NO; MEAN CORPUSCULAR HEMOGLOBIN 29.4 pg (27.5-34.5); MEAN CORPUSCULAR VOLUME 89.2 fL (81-97); MEAN PLATELET VOLUME 8.3 fL (7.4-10.4); MONOCYTES # (AUTO) 1.06 x10^3/uL (0.2-0.8); MONOCYTES % (AUTO) 10 % (2-9); NEUTROPHILS # (AUTO) 7.46 x10^3/uL (1.8-6.8); NEUTROPHILS % (AUTO) 69 % (42-75); PLATELET COUNT 334 x10^3/uL (130-400); RED BLOOD COUNT 3.47 x10^6/uL (4.38-5.82); RED CELL DISTRIBUTION WIDTH 14.3 % (9.4-14.8)
[2019-08-27] MEDS: INSULIN LISPRO 100 UNITS/ML, PEN SQ-INSULIN SCH ×4 (07:00→21:17)
[2019-08-27 07:13] VITALS: BP 140/92
[2019-08-27] MEDS: SODIUM CHLORIDE FLUSH 10ML SYR IVF SCH ×2 (09:00→20:00)
[2019-08-27] MEDS: APIXABAN 5 MG TABLET PO SCH ×2 (10:11→21:16)
[2019-08-27] MEDS: SPIRONOLACTONE 25 MG TABLET PO SCH (10:11)
[2019-08-27] MEDS: VARENICLINE 1MG TABLET PO SCH ×2 (10:11→21:16)
[2019-08-27] MEDS: NYSTATIN TOPICAL POWDER 15GM TP SCH ×2 (10:12→21:17)
[2019-08-27] MEDS: LISINOPRIL 5 MG TABLET PO SCH ×2 (10:12→21:16)
[2019-08-27 12:24] VITALS: BP 121/75
[2019-08-27] MEDS: NICOTINE 7 MG/24 HR PATCH.TD24 TD SCH (17:52)
[2019-08-27 20:32] VITALS: BP 132/68
[2019-08-27] MEDS: ASPIRIN 81 MG TABLET EC PO SCH (21:16)
[2019-08-27] MEDS: CLOPIDOGREL 75 MG TABLET PO SCH (21:16)
[2019-08-27] MEDS: ATORVASTATIN 40 MG TABLET PO SCH (21:16)
[2019-08-27] MEDS: TRAZODONE 50MG TABLET PO PRN (23:10)
[2019-08-28 00:30] VITALS: BP 128/56
[2019-08-28] MEDS: CEFTAZIDIME 2,000 MG in SODIUM CHLORIDE 0.9% 50 ML IV SCH ×3 (03:48→20:03)
[2019-08-28] MEDS: INSULIN LISPRO 100 UNITS/ML, PEN SQ-INSULIN SCH ×4 (07:00→22:08)
[2019-08-28 07:33] VITALS: BP 127/78
[2019-08-28] MEDS: SODIUM CHLORIDE FLUSH 10ML SYR IVF SCH ×2 (09:00→22:07)
[2019-08-28] MEDS: LISINOPRIL 5 MG TABLET PO SCH ×2 (09:20→22:07)
[2019-08-28] MEDS: SPIRONOLACTONE 25 MG TABLET PO SCH (09:20)
[2019-08-28] MEDS: APIXABAN 5 MG TABLET PO SCH ×2 (09:20→22:07)
[2019-08-28] MEDS: NYSTATIN TOPICAL POWDER 15GM TP SCH ×2 (09:20→22:09)
[2019-08-28] MEDS: VARENICLINE 1MG TABLET PO SCH ×2 (09:20→22:07)
[2019-08-28 14:19] VITALS: BP 131/65
[2019-08-28] MEDS: NICOTINE 7 MG/24 HR PATCH.TD24 TD SCH (17:54)
[2019-08-28 20:22] VITALS: BP 110/67
[2019-08-28] MEDS: ASPIRIN 81 MG TABLET EC PO SCH (22:07)
[2019-08-28] MEDS: ATORVASTATIN 40 MG TABLET PO SCH (22:07)
[2019-08-28] MEDS: CLOPIDOGREL 75 MG TABLET PO SCH (22:07)
[2019-08-29 01:09] VITALS: BP 144/80
[2019-08-29] MEDS: TRAZODONE 50MG TABLET PO PRN (02:24)
[2019-08-29] MEDS: CEFTAZIDIME 2,000 MG in SODIUM CHLORIDE 0.9% 50 ML IV SCH ×4 (03:56→20:27)
[2019-08-29 06:54] LABS: BASOPHILS # (AUTO) 0.04 x10^3/uL (0-0.1); BASOPHILS % (AUTO) 0 % (0-1); EOSINOPHILS % (AUTO) 3 % (1-7); LYMPHOCYTES % (AUTO) 22 % (22-44); MD NO; MEAN CORPUSCULAR HEMOGLOBIN 29.4 pg (27.5-34.5); MEAN CORPUSCULAR HGB CONC 32.8 g/dL (33.2-36.2); MEAN CORPUSCULAR VOLUME 89.5 fL (81-97); MEAN PLATELET VOLUME 8.2 fL (7.4-10.4); MONOCYTES # (AUTO) 0.89 x10^3/uL (0.2-0.8); MONOCYTES % (AUTO) 8 % (2-9); NEUTROPHILS # (AUTO) 7.03 x10^3/uL (1.8-6.8); NEUTROPHILS % (AUTO) 67 % (42-75); PLATELET COUNT 314 x10^3/uL (130-400); RED BLOOD COUNT 3.25 x10^6/uL (4.38-5.82); RED CELL DISTRIBUTION WIDTH 14.2 % (9.4-14.8)
[2019-08-29 07:02] LABS: ALANINE AMINOTRANSFERASE 41 U/L (12-78); ALBUMIN 2.1 g/dL (3.4-5.0); ANION GAP 4 mmol/L (5-15); CALCIUM 8.2 mg/dL (8.5-10.1); CHLORIDE 109 mmol/L (98-107); CREATININE 1.16 mg/dL (0.7-1.3)
[2019-08-29 07:04] LABS: ALKALINE PHOSPHATASE 68 U/L (45-117); BILIRUBIN,TOTAL 0.4 mg/dL (0.2-1.0); TOTAL PROTEIN 6.5 g/dL (6.4-8.2)
[2019-08-29 07:52] VITALS: BP 144/67
[2019-08-29] MEDS: INSULIN LISPRO 100 UNITS/ML, PEN SQ-INSULIN SCH ×4 (08:13→20:44)
[2019-08-29] MEDS: SPIRONOLACTONE 25 MG TABLET PO SCH (09:28)
[2019-08-29] MEDS: APIXABAN 5 MG TABLET PO SCH ×2 (09:28→20:41)
[2019-08-29] MEDS: VARENICLINE 1MG TABLET PO SCH ×2 (09:28→20:42)
[2019-08-29] MEDS: LISINOPRIL 5 MG TABLET PO SCH ×2 (09:28→20:42)
[2019-08-29] MEDS: SODIUM CHLORIDE FLUSH 10ML SYR IVF SCH ×2 (09:28→20:40)
[2019-08-29] MEDS: NYSTATIN TOPICAL POWDER 15GM TP SCH ×2 (09:29→20:44)
[2019-08-29 13:17] VITALS: BP 132/69
[2019-08-29] MEDS ORDERED: LISI5TAB7 PO (15:56)
[2019-08-29] MEDS ORDERED: METH500T7 PO (15:56)
[2019-08-29] MEDS ORDERED: APIX5TAB PO (15:56)
[2019-08-29] MEDS ORDERED: SPIR25TA PO (15:56)
[2019-08-29] MEDS ORDERED: LEVO750T26 PO ×2 (16:00)
[2019-08-29] MEDS ORDERED: LEVOFLOXACIN 750 MG TABLET PO ONE (16:00)
[2019-08-29 20:26] VITALS: BP 95/61
[2019-08-29] MEDS: NICOTINE 7 MG/24 HR PATCH.TD24 TD SCH (20:33)
[2019-08-29] MEDS: ASPIRIN 81 MG TABLET EC PO SCH (20:41)
[2019-08-29] MEDS: ATORVASTATIN 40 MG TABLET PO SCH (20:41)
[2019-08-29] MEDS: CLOPIDOGREL 75 MG TABLET PO SCH (20:42)
[2019-08-30] MEDS: CEFTAZIDIME 2,000 MG in SODIUM CHLORIDE 0.9% 50 ML IV SCH ×3 (03:07→20:10)
[2019-08-30 03:14] VITALS: BP 117/70
[2019-08-30] MEDS: INSULIN LISPRO 100 UNITS/ML, PEN SQ-INSULIN SCH ×4 (07:54→20:13)
[2019-08-30] MEDS: APIXABAN 5 MG TABLET PO SCH ×2 (09:41→20:14)
[2019-08-30] MEDS: SPIRONOLACTONE 25 MG TABLET PO SCH (09:41)
[2019-08-30] MEDS: VARENICLINE 1MG TABLET PO SCH ×2 (09:41→20:11)
[2019-08-30] MEDS: LISINOPRIL 5 MG TABLET PO SCH ×2 (09:41→20:12)
[2019-08-30] MEDS: SODIUM CHLORIDE FLUSH 10ML SYR IVF SCH ×2 (09:42→20:14)
[2019-08-30] MEDS: NYSTATIN TOPICAL POWDER 15GM TP SCH ×2 (09:42→20:14)
[2019-08-30 09:59] VITALS: BP 118/73
[2019-08-30 15:11] VITALS: BP 105/68
[2019-08-30 20:05] VITALS: BP 113/68
[2019-08-30] MEDS: NICOTINE 7 MG/24 HR PATCH.TD24 TD SCH (20:10)
[2019-08-30] MEDS: ASPIRIN 81 MG TABLET EC PO SCH (20:11)
[2019-08-30] MEDS: CLOPIDOGREL 75 MG TABLET PO SCH (20:13)
[2019-08-30] MEDS: ATORVASTATIN 40 MG TABLET PO SCH (20:13)
[2019-08-31] MEDS: CEFTAZIDIME 2,000 MG in SODIUM CHLORIDE 0.9% 50 ML IV SCH ×3 (03:37→20:07)
[2019-08-31 03:38] VITALS: BP 103/64
[2019-08-31] MEDS: TRAZODONE 50MG TABLET PO PRN (03:43)
[2019-08-31] MEDS: INSULIN LISPRO 100 UNITS/ML, PEN SQ-INSULIN SCH ×4 (07:00→20:31)
[2019-08-31 07:49] VITALS: BP 103/58
[2019-08-31] MEDS: SPIRONOLACTONE 25 MG TABLET PO SCH (07:58)
[2019-08-31] MEDS: APIXABAN 5 MG TABLET PO SCH ×2 (07:58→20:05)
[2019-08-31] MEDS: VARENICLINE 1MG TABLET PO SCH ×2 (07:58→20:06)
[2019-08-31] MEDS: SODIUM CHLORIDE FLUSH 10ML SYR IVF SCH ×2 (07:59→21:00)
[2019-08-31] MEDS: LISINOPRIL 5 MG TABLET PO SCH ×2 (08:00→20:05)
[2019-08-31] MEDS: NYSTATIN TOPICAL POWDER 15GM TP SCH ×2 (09:00→20:07)
[2019-08-31 19:44] VITALS: BP 104/60
[2019-08-31] MEDS: ASPIRIN 81 MG TABLET EC PO SCH (20:06)
[2019-08-31] MEDS: ATORVASTATIN 40 MG TABLET PO SCH (20:06)
[2019-08-31] MEDS: CLOPIDOGREL 75 MG TABLET PO SCH (20:06)
[2019-08-31] MEDS: NICOTINE 7 MG/24 HR PATCH.TD24 TD SCH (20:07)
[2019-09-01 01:36] VITALS: BP 114/64
[2019-09-01] MEDS: CEFTAZIDIME 2,000 MG in SODIUM CHLORIDE 0.9% 50 ML IV SCH ×3 (03:09→19:42)
[2019-09-01] MEDS: INSULIN LISPRO 100 UNITS/ML, PEN SQ-INSULIN SCH ×4 (06:11→21:00)
[2019-09-01 07:04] VITALS: BP 130/73
[2019-09-01] MEDS: LISINOPRIL 5 MG TABLET PO SCH ×2 (08:33→20:56)
[2019-09-01] MEDS: SPIRONOLACTONE 25 MG TABLET PO SCH (08:33)
[2019-09-01] MEDS: APIXABAN 5 MG TABLET PO SCH ×2 (08:33→20:54)
[2019-09-01] MEDS: VARENICLINE 1MG TABLET PO SCH ×2 (08:33→20:55)
[2019-09-01] MEDS: NYSTATIN TOPICAL POWDER 15GM TP SCH (08:53)
[2019-09-01] MEDS: SODIUM CHLORIDE FLUSH 10ML SYR IVF SCH ×2 (08:53→21:00)
[2019-09-01 13:25] VITALS: BP 106/60
[2019-09-01] MEDS: ASPIRIN 81 MG TABLET EC PO SCH (20:54)
[2019-09-01] MEDS: CLOPIDOGREL 75 MG TABLET PO SCH (20:54)
[2019-09-01] MEDS: NICOTINE 7 MG/24 HR PATCH.TD24 TD SCH (20:54)
[2019-09-01] MEDS: ATORVASTATIN 40 MG TABLET PO SCH (20:56)
[2019-09-01 21:08] VITALS: BP 106/64
[2019-09-02 03:19] VITALS: BP 105/57
[2019-09-02] MEDS: NYSTATIN TOPICAL POWDER 15GM TP SCH ×2 (03:53→09:14)
[2019-09-02] MEDS: CEFTAZIDIME 2,000 MG in SODIUM CHLORIDE 0.9% 50 ML IV SCH ×2 (03:53→11:41)
[2019-09-02 05:53] LABS: CHLORIDE 107 mmol/L (98-107)
[2019-09-02 05:59] LABS: ALANINE AMINOTRANSFERASE 37 U/L (12-78); ALBUMIN 2.1 g/dL (3.4-5.0); ALKALINE PHOSPHATASE 65 U/L (45-117); ANION GAP 5 mmol/L (5-15); BILIRUBIN,TOTAL 0.5 mg/dL (0.2-1.0); C-REACTIVE PROTEIN, QUANT 0.81 mg/dL (0.02-0.49); CREATININE 1.15 mg/dL (0.7-1.3); HCT (SEDRATE) 24.9 % (39.2-51.8); TOTAL PROTEIN 6.4 g/dL (6.4-8.2)
[2019-09-02 06:03] LABS: BASOPHILS # (AUTO) 0.05 x10^3/uL (0-0.1); BASOPHILS % (AUTO) 1 % (0-1); EOSINOPHILS # (AUTO) 0.31 x10^3/uL (0-0.4); EOSINOPHILS % (AUTO) 4 % (1-7); LYMPHOCYTES % (AUTO) 24 % (22-44); MD NO; MEAN CORPUSCULAR HEMOGLOBIN 30.4 pg (27.5-34.5); MEAN CORPUSCULAR HGB CONC 34.1 g/dL (33.2-36.2); MEAN CORPUSCULAR VOLUME 89.2 fL (81-97); MEAN PLATELET VOLUME 8.6 fL (7.4-10.4); MONOCYTES # (AUTO) 0.69 x10^3/uL (0.2-0.8); MONOCYTES % (AUTO) 8 % (2-9); NEUTROPHILS # (AUTO) 5.55 x10^3/uL (1.8-6.8); NEUTROPHILS % (AUTO) 64 % (42-75); PLATELET COUNT 272 x10^3/uL (130-400); RED BLOOD COUNT 2.75 x10^6/uL (4.38-5.82); RED CELL DISTRIBUTION WIDTH 14.1 % (9.4-14.8)
[2019-09-02] MEDS: INSULIN LISPRO 100 UNITS/ML, PEN SQ-INSULIN SCH ×3 (07:00→16:00)
[2019-09-02 07:45] VITALS: BP 106/70
[2019-09-02] MEDS: SODIUM CHLORIDE FLUSH 10ML SYR IVF SCH (09:00)
[2019-09-02] MEDS: VARENICLINE 1MG TABLET PO SCH (09:14)
[2019-09-02] MEDS: LISINOPRIL 5 MG TABLET PO SCH (09:14)
[2019-09-02] MEDS: SPIRONOLACTONE 25 MG TABLET PO SCH (09:15)
[2019-09-02] MEDS: APIXABAN 5 MG TABLET PO SCH (09:15)
[2019-09-02 14:32] VITALS: BP 99/56
[2019-09-02] MEDS ORDERED: HYDR-3241 PO (16:47)
[2019-09-02] MEDS ORDERED: CEFT2VIA29 IV (16:47)
[2019-09-02] MEDS ORDERED: METF500T PO (17:03)
== END 2019-09-02 18:35 | disposition home or self-care (01) | DRG 853 ==
LOC: ED 16:40 → EDIP 16:41 → ED 16:56 → 4NE 18:10 → 4WST 08-15 10:38 → 4NE 08-15 10:38 → 5SO 08-21 17:19 → 4NE 08-31 15:35
PROVIDERS: ADMIT Hospitalist; ATTEND Hospitalist
PROC: B41D1ZZ Fluoroscopy of Aorta and Bilateral Lower Extremity Arteries using Low Osmolar Contrast (ICD-10-PCS; 2019-08-14)
PROC: 04CK0ZZ Extirpation of Matter from Right Femoral Artery, Open Approach (ICD-10-PCS; 2019-08-16)
PROC: 041K09N Bypass Right Femoral Artery to Posterior Tibial Artery with Autologous Venous Tissue, Open Approach (ICD-10-PCS; 2019-08-16)
PROC: 04CL3ZZ Extirpation of Matter from Left Femoral Artery, Percutaneous Approach (ICD-10-PCS; principal; 2019-08-16 16:00)
PROC: 0Y6M0Z9 Detachment at Right Foot, Partial 1st Ray, Open Approach (ICD-10-PCS; 2019-08-23)
PROC: 0Y6P0Z0 Detachment at Right 1st Toe, Complete, Open Approach (ICD-10-PCS; 2019-08-23)
DX: A41.9 Sepsis, unspecified organism (principal); I21.09 ST elevation (STEMI) myocardial infarction involving other coronary artery of anterior wall; I50.23 Acute on chronic systolic (congestive) heart failure; N17.0 Acute kidney failure with tubular necrosis; D68.69 Other thrombophilia; E11.52 Type 2 diabetes mellitus with diabetic peripheral angiopathy with gangrene; E87.1 Hypo-osmolality and hyponatremia; L03.115 Cellulitis of right lower limb; M86.10 Other acute osteomyelitis, unspecified site; T82.856A Stenosis of peripheral vascular stent, initial encounter; B37.2 Candidiasis of skin and nail; E11.65 Type 2 diabetes mellitus with hyperglycemia; E11.69 Type 2 diabetes mellitus with other specified complication; E66.9 Obesity, unspecified; E78.5 Hyperlipidemia, unspecified; F17.210 Nicotine dependence, cigarettes, uncomplicated; G62.9 Polyneuropathy, unspecified; I11.0 Hypertensive heart disease with heart failure; I25.10 Atherosclerotic heart disease of native coronary artery without angina pectoris; I25.5 Ischemic cardiomyopathy; I48.91 Unspecified atrial fibrillation; I49.3 Ventricular premature depolarization; I70.201 Unspecified atherosclerosis of native arteries of extremities, right leg; I99.8 Other disorder of circulatory system; Y83.8 Other surgical procedures as the cause of abnormal reaction of the patient, or of later complication, without mention of misadventure at the time of the procedure; K59.00 Constipation, unspecified; Z79.02 Long term (current) use of antithrombotics/antiplatelets; Z79.82 Long term (current) use of aspirin; Z82.49 Family history of ischemic heart disease and other diseases of the circulatory system; Z86.14 Personal history of Methicillin resistant Staphylococcus aureus infection; Z89.519 Acquired absence of unspecified leg below knee; Y92.89 Other specified places as the place of occurrence of the external cause
CPT/HCPCS: 36415; 73630; 93017; 96374; 99285; C8929; J3490; 36573; 75625; 75710; 75716; 78452; 80048; 80053; 80061; 82040; 82962; 83036; 84443; 85014; 85018; 85025; 85610; 85651; 86140; 87070; 87075; 87077; 87176; 87186; 87205; 88305; 88311; 93005; 93922; 93926; 93970; 99156; 99157; G0378; J0690; J0696; J0712; J0713; J1100; J1170; J1644; J1650; J2250; J2405; J2543; J2704; J2720; J2785; J3010; J3370; J7060; Q9957; A9502; A9575; C1751; C1757; C1768; C1769; C1894; C9898; J0282; J0330; J1815; J2310; J2370; J7030; J7050; J7120; Q0163

== ENCOUNTER → 2019-09-09 | Outpatient (CLI) | payer BC ==
[~2019-09-09] MED LIST: AMLO-150 PO; APIX5TAB PO; ASPI81TA45 PO; ATOR40TA78 PO; CARV-39 PO; CEFT2VIA29 IV; CLOP75TA PO; HYDR-3241 PO; LEVO750T26 PO; LISI-170 PO; LISI5TAB7 PO; METF500T PO; METH500T7 PO; SPIR25TA PO
== END | disposition home or self-care (01) ==
LOC: WOUND 09:26
PROVIDERS: ATTEND Internal Medicine
DX: T87.89 Other complications of amputation stump (principal); E11.621 Type 2 diabetes mellitus with foot ulcer; I70.235 Atherosclerosis of native arteries of right leg with ulceration of other part of foot; L97.512 Non-pressure chronic ulcer of other part of right foot with fat layer exposed; I70.234 Atherosclerosis of native arteries of right leg with ulceration of heel and midfoot; L97.412 Non-pressure chronic ulcer of right heel and midfoot with fat layer exposed; E11.51 Type 2 diabetes mellitus with diabetic peripheral angiopathy without gangrene; E11.42 Type 2 diabetes mellitus with diabetic polyneuropathy; E11.65 Type 2 diabetes mellitus with hyperglycemia; E11.618 Type 2 diabetes mellitus with other diabetic arthropathy; M86.071 Acute hematogenous osteomyelitis, right ankle and foot; E11.69 Type 2 diabetes mellitus with other specified complication; I48.91 Unspecified atrial fibrillation; I25.10 Atherosclerotic heart disease of native coronary artery without angina pectoris; I11.0 Hypertensive heart disease with heart failure; I50.23 Acute on chronic systolic (congestive) heart failure; E78.5 Hyperlipidemia, unspecified; Z68.30 Body mass index [BMI] 30.0-30.9, adult; E66.9 Obesity, unspecified; F17.210 Nicotine dependence, cigarettes, uncomplicated; Z95.820 Peripheral vascular angioplasty status with implants and grafts; Z79.01 Long term (current) use of anticoagulants; Z79.82 Long term (current) use of aspirin; Z79.84 Long term (current) use of oral hypoglycemic drugs; Z89.519 Acquired absence of unspecified leg below knee; Y83.5 Amputation of limb(s) as the cause of abnormal reaction of the patient, or of later complication, without mention of misadventure at the time of the procedure
CPT/HCPCS: 11042; 11045; 99215

== ENCOUNTER → 2019-09-16 | Outpatient (CLI) | payer BC | END | disposition home or self-care (01) | LOC: WOUND 08:32 | PROVIDERS: ATTEND Internal Medicine | DX: E11.621 Type 2 diabetes mellitus with foot ulcer (principal); I70.235 Atherosclerosis of native arteries of right leg with ulceration of other part of foot; L97.511 Non-pressure chronic ulcer of other part of right foot limited to breakdown of skin; I70.234 Atherosclerosis of native arteries of right leg with ulceration of heel and midfoot; L97.411 Non-pressure chronic ulcer of right heel and midfoot limited to breakdown of skin; E11.69 Type 2 diabetes mellitus with other specified complication; M86.071 Acute hematogenous osteomyelitis, right ankle and foot; E11.51 Type 2 diabetes mellitus with diabetic peripheral angiopathy without gangrene; E11.42 Type 2 diabetes mellitus with diabetic polyneuropathy; E11.65 Type 2 diabetes mellitus with hyperglycemia; E11.618 Type 2 diabetes mellitus with other diabetic arthropathy; I11.0 Hypertensive heart disease with heart failure; I50.23 Acute on chronic systolic (congestive) heart failure; I48.91 Unspecified atrial fibrillation; I25.10 Atherosclerotic heart disease of native coronary artery without angina pectoris; E66.9 Obesity, unspecified; E78.5 Hyperlipidemia, unspecified; F17.210 Nicotine dependence, cigarettes, uncomplicated; Z89.411 Acquired absence of right great toe; Z95.5 Presence of coronary angioplasty implant and graft; Z68.30 Body mass index [BMI] 30.0-30.9, adult; Z95.820 Peripheral vascular angioplasty status with implants and grafts; Z79.01 Long term (current) use of anticoagulants; Z79.82 Long term (current) use of aspirin; Z79.84 Long term (current) use of oral hypoglycemic drugs; Z89.519 Acquired absence of unspecified leg below knee | CPT/HCPCS: 97597; 97598 ==

== ENCOUNTER 2019-09-25 08:59 | Outpatient (CLI) | payer BC | END 2019-09-25 23:59 | disposition home or self-care (01) | LOC: WOUND 08:59 | PROVIDERS: ATTEND Internal Medicine | DX: E11.621 Type 2 diabetes mellitus with foot ulcer (principal); I70.235 Atherosclerosis of native arteries of right leg with ulceration of other part of foot; L97.511 Non-pressure chronic ulcer of other part of right foot limited to breakdown of skin; I70.234 Atherosclerosis of native arteries of right leg with ulceration of heel and midfoot; L97.411 Non-pressure chronic ulcer of right heel and midfoot limited to breakdown of skin; E11.69 Type 2 diabetes mellitus with other specified complication; M86.071 Acute hematogenous osteomyelitis, right ankle and foot; E11.51 Type 2 diabetes mellitus with diabetic peripheral angiopathy without gangrene; E11.42 Type 2 diabetes mellitus with diabetic polyneuropathy; E11.65 Type 2 diabetes mellitus with hyperglycemia; E11.618 Type 2 diabetes mellitus with other diabetic arthropathy; I11.0 Hypertensive heart disease with heart failure; I50.23 Acute on chronic systolic (congestive) heart failure; I48.91 Unspecified atrial fibrillation; I25.10 Atherosclerotic heart disease of native coronary artery without angina pectoris; E66.9 Obesity, unspecified; E78.5 Hyperlipidemia, unspecified; F17.210 Nicotine dependence, cigarettes, uncomplicated; Z89.411 Acquired absence of right great toe; Z95.5 Presence of coronary angioplasty implant and graft; Z68.30 Body mass index [BMI] 30.0-30.9, adult; Z95.820 Peripheral vascular angioplasty status with implants and grafts; Z79.01 Long term (current) use of anticoagulants; Z79.82 Long term (current) use of aspirin; Z79.84 Long term (current) use of oral hypoglycemic drugs; Z89.519 Acquired absence of unspecified leg below knee | CPT/HCPCS: 97597; 97598 ==

== ENCOUNTER 2019-10-02 08:55 | Outpatient (CLI) | payer BC | END 2019-10-02 23:59 | disposition home or self-care (01) | LOC: WOUND 08:55 | PROVIDERS: ATTEND Internal Medicine | DX: T87.89 Other complications of amputation stump (principal); I70.235 Atherosclerosis of native arteries of right leg with ulceration of other part of foot; L97.512 Non-pressure chronic ulcer of other part of right foot with fat layer exposed; E11.69 Type 2 diabetes mellitus with other specified complication; M86.071 Acute hematogenous osteomyelitis, right ankle and foot; E11.42 Type 2 diabetes mellitus with diabetic polyneuropathy; E11.618 Type 2 diabetes mellitus with other diabetic arthropathy; I11.0 Hypertensive heart disease with heart failure; I50.23 Acute on chronic systolic (congestive) heart failure; I48.91 Unspecified atrial fibrillation; I25.10 Atherosclerotic heart disease of native coronary artery without angina pectoris; E66.9 Obesity, unspecified; E78.5 Hyperlipidemia, unspecified; E11.52 Type 2 diabetes mellitus with diabetic peripheral angiopathy with gangrene; I96 Gangrene, not elsewhere classified; F17.210 Nicotine dependence, cigarettes, uncomplicated; Z95.5 Presence of coronary angioplasty implant and graft; Z68.30 Body mass index [BMI] 30.0-30.9, adult; Z95.820 Peripheral vascular angioplasty status with implants and grafts; Z79.01 Long term (current) use of anticoagulants; Z79.82 Long term (current) use of aspirin; Z79.84 Long term (current) use of oral hypoglycemic drugs; Z79.02 Long term (current) use of antithrombotics/antiplatelets; Z89.519 Acquired absence of unspecified leg below knee; Z86.14 Personal history of Methicillin resistant Staphylococcus aureus infection; Y83.5 Amputation of limb(s) as the cause of abnormal reaction of the patient, or of later complication, without mention of misadventure at the time of the procedure | CPT/HCPCS: 11042; 11045 ==

== ENCOUNTER → 2019-10-07 | Outpatient (CLI) | payer BC | END | disposition home or self-care (01) | LOC: WOUND 10:31 | PROVIDERS: ATTEND Internal Medicine | DX: T87.89 Other complications of amputation stump (principal); I70.235 Atherosclerosis of native arteries of right leg with ulceration of other part of foot; L97.512 Non-pressure chronic ulcer of other part of right foot with fat layer exposed; E11.69 Type 2 diabetes mellitus with other specified complication; M86.071 Acute hematogenous osteomyelitis, right ankle and foot; E11.42 Type 2 diabetes mellitus with diabetic polyneuropathy; E11.618 Type 2 diabetes mellitus with other diabetic arthropathy; I11.0 Hypertensive heart disease with heart failure; I50.23 Acute on chronic systolic (congestive) heart failure; I48.91 Unspecified atrial fibrillation; I25.10 Atherosclerotic heart disease of native coronary artery without angina pectoris; E66.9 Obesity, unspecified; E78.5 Hyperlipidemia, unspecified; E11.52 Type 2 diabetes mellitus with diabetic peripheral angiopathy with gangrene; I96 Gangrene, not elsewhere classified; F17.210 Nicotine dependence, cigarettes, uncomplicated; Z95.5 Presence of coronary angioplasty implant and graft; Z68.30 Body mass index [BMI] 30.0-30.9, adult; Z95.820 Peripheral vascular angioplasty status with implants and grafts; Z79.01 Long term (current) use of anticoagulants; Z79.82 Long term (current) use of aspirin; Z79.84 Long term (current) use of oral hypoglycemic drugs; Z79.02 Long term (current) use of antithrombotics/antiplatelets; Z89.519 Acquired absence of unspecified leg below knee; Z86.14 Personal history of Methicillin resistant Staphylococcus aureus infection; Y83.5 Amputation of limb(s) as the cause of abnormal reaction of the patient, or of later complication, without mention of misadventure at the time of the procedure | CPT/HCPCS: 97597; 97598 ==

== ENCOUNTER 2019-10-14 09:42 | Outpatient (CLI) | payer BC | END 2019-10-14 23:59 | disposition home or self-care (01) | LOC: WOUND 09:42 | PROVIDERS: ATTEND Internal Medicine | DX: T87.89 Other complications of amputation stump (principal); I70.235 Atherosclerosis of native arteries of right leg with ulceration of other part of foot; L97.512 Non-pressure chronic ulcer of other part of right foot with fat layer exposed; I70.234 Atherosclerosis of native arteries of right leg with ulceration of heel and midfoot; L97.411 Non-pressure chronic ulcer of right heel and midfoot limited to breakdown of skin; E11.69 Type 2 diabetes mellitus with other specified complication; M86.071 Acute hematogenous osteomyelitis, right ankle and foot; E11.42 Type 2 diabetes mellitus with diabetic polyneuropathy; E11.618 Type 2 diabetes mellitus with other diabetic arthropathy; I11.0 Hypertensive heart disease with heart failure; I50.23 Acute on chronic systolic (congestive) heart failure; I48.91 Unspecified atrial fibrillation; I25.10 Atherosclerotic heart disease of native coronary artery without angina pectoris; E66.9 Obesity, unspecified; E78.5 Hyperlipidemia, unspecified; E11.52 Type 2 diabetes mellitus with diabetic peripheral angiopathy with gangrene; I96 Gangrene, not elsewhere classified; F17.210 Nicotine dependence, cigarettes, uncomplicated; Z95.5 Presence of coronary angioplasty implant and graft; Z68.30 Body mass index [BMI] 30.0-30.9, adult; Z95.820 Peripheral vascular angioplasty status with implants and grafts; Z79.01 Long term (current) use of anticoagulants; Z79.82 Long term (current) use of aspirin; Z79.84 Long term (current) use of oral hypoglycemic drugs; Z79.02 Long term (current) use of antithrombotics/antiplatelets; Z89.519 Acquired absence of unspecified leg below knee; Z86.14 Personal history of Methicillin resistant Staphylococcus aureus infection; Y83.5 Amputation of limb(s) as the cause of abnormal reaction of the patient, or of later complication, without mention of misadventure at the time of the procedure | CPT/HCPCS: 97597; 97598 ==

== ENCOUNTER → 2019-10-16 | Outpatient (CLI) | payer BC | END | disposition home or self-care (01) | LOC: WOUND 09:10 | PROVIDERS: ATTEND Internal Medicine | DX: T87.89 Other complications of amputation stump (principal); I70.235 Atherosclerosis of native arteries of right leg with ulceration of other part of foot; L97.512 Non-pressure chronic ulcer of other part of right foot with fat layer exposed; E11.69 Type 2 diabetes mellitus with other specified complication; M86.071 Acute hematogenous osteomyelitis, right ankle and foot; E11.52 Type 2 diabetes mellitus with diabetic peripheral angiopathy with gangrene; I96 Gangrene, not elsewhere classified; E11.42 Type 2 diabetes mellitus with diabetic polyneuropathy; E11.618 Type 2 diabetes mellitus with other diabetic arthropathy; I11.0 Hypertensive heart disease with heart failure; I50.23 Acute on chronic systolic (congestive) heart failure; I48.91 Unspecified atrial fibrillation; I25.10 Atherosclerotic heart disease of native coronary artery without angina pectoris; E66.9 Obesity, unspecified; E78.5 Hyperlipidemia, unspecified; F17.210 Nicotine dependence, cigarettes, uncomplicated; Z95.5 Presence of coronary angioplasty implant and graft; Z68.30 Body mass index [BMI] 30.0-30.9, adult; Z95.820 Peripheral vascular angioplasty status with implants and grafts; Z79.01 Long term (current) use of anticoagulants; Z79.82 Long term (current) use of aspirin; Z79.84 Long term (current) use of oral hypoglycemic drugs; Z79.02 Long term (current) use of antithrombotics/antiplatelets; Z89.519 Acquired absence of unspecified leg below knee; Z86.14 Personal history of Methicillin resistant Staphylococcus aureus infection; Y83.5 Amputation of limb(s) as the cause of abnormal reaction of the patient, or of later complication, without mention of misadventure at the time of the procedure | CPT/HCPCS: 11042; 11045 ==

== ENCOUNTER 2019-10-28 05:26 | Day surgery (SDC) | payer BC ==
[~2019-10-28] VITALS: Ht 177.8 cm; Wt 93.2 kg
[2019-10-28] MEDS ORDERED: LACTATED RINGERS 1,000 ML IV SCH (05:47)
[2019-10-28] MEDS ORDERED: CHLORHEXIDINE 15 ML UDC MM ONE (06:00)
[2019-10-28] MEDS ORDERED: BUPIVACAINE/PF 0.5% ONE (06:16)
[2019-10-28 06:22] VITALS: BP 138/70
[2019-10-28] MEDS ORDERED: APIX5TAB PO (06:40)
[2019-10-28] MEDS ORDERED: METH500T7 PO (06:40)
[2019-10-28] MEDS ORDERED: CEFT2VIA29 IVPB (06:40)
[2019-10-28] MEDS ORDERED: LISI5TAB7 PO (06:40)
[2019-10-28] MEDS ORDERED: CLOP75TA PO (06:40)
[2019-10-28] MEDS ORDERED: ASPI81TA45 PO (06:40)
[2019-10-28] MEDS ORDERED: ATOR40TA78 PO (06:40)
[2019-10-28] MEDS ORDERED: METF500T17 PO (06:40)
[2019-10-28] MEDS ORDERED: HYDR-3241 PO (06:40)
[2019-10-28] MEDS ORDERED: PROPOFOL 50 ML ONE (06:53)
[2019-10-28] MEDS ORDERED: FENTANYL PF 250 MCG/5ML ONE (06:54)
[2019-10-28] MEDS ORDERED: ONDANSETRON 2MG/ML, 2ML ONE (07:20)
[2019-10-28] MEDS ORDERED: EPHEDRINE 50 MG/ML, 1ML IVPush PRN (07:30)
[2019-10-28] MEDS ORDERED: PROMETHAZINE 25 MG/ML, 1ML IVPush PRN (07:30)
[2019-10-28] MEDS ORDERED: MIDAZOLAM 1 MG/ML, 2ML IV PRN (07:30)
[2019-10-28] MEDS ORDERED: SILVER SULF. CRM 1% , 25GM TP ONE (07:30)
[2019-10-28] MEDS ORDERED: ALBUTEROL/IPRATROPIUM 2.5MG/0.5MG, 3 ML NPPB PRN (07:30)
[2019-10-28] MEDS ORDERED: ONDANSETRON 2MG/ML, 2ML IVPush PRN (07:30)
[2019-10-28] MEDS ORDERED: DIPHENHYDRAMINE 50 MG/ML, 1ML IVPush PRN (07:30)
[2019-10-28] MEDS ORDERED: ACETAMINOPHEN 325 MG TABLET PO PRN (07:30)
[2019-10-28] MEDS ORDERED: EPHEDRINE 50 MG/ML, 1ML IM PRN (07:30)
[2019-10-28] MEDS ORDERED: METOPROLOL 1 MG/ML, 5ML IV PRN (07:30)
[2019-10-28] MEDS ORDERED: OXYcodone 5 MG/5 ML ORAL.SOL UDC ONE ×2 (08:12→08:41)
[2019-10-28] MEDS ORDERED: FENTANYL PF 100 MCG/2ML ONE (08:12)
[2019-10-28] MEDS: FENTANYL PF 100 MCG/2ML IV PRN ×3 (08:14→08:39)
[2019-10-28] MEDS: OXYcodone 5 MG/5 ML ORAL.SOL UDC PO PRN ×2 (08:15→08:42)
[2019-10-28] MEDS ORDERED: MORPHINE SULFATE 4 MG/ML, 1ML ONE (08:40)
[2019-10-28] MEDS: MORPHINE SULFATE 4 MG/ML, 1ML IVPush PRN ×2 (08:44→08:51)
== END 2019-10-28 10:20 | disposition home or self-care (01) ==
LOC: OUT 05:26
PROVIDERS: ATTEND Orthopaedic Surgery
DX: M86.8X7 Other osteomyelitis, ankle and foot (principal); Z87.891 Personal history of nicotine dependence
CPT/HCPCS: 28810; 82962; 87015; 87070; 87075; 87077; 87102; 87116; 87186; 87205; 87206; 88305; J2270; J2405; J2704; J3010; J7120; U0001

== ENCOUNTER → 2019-11-06 | Outpatient (CLI) | payer BC ==
[~2019-11-06] MED LIST changes: +CEFT2VIA29 IVPB; +METF500T17 PO
== END | disposition home or self-care (01) ==
LOC: WOUND 09:04
PROVIDERS: ATTEND Internal Medicine
DX: T87.89 Other complications of amputation stump (principal); I70.235 Atherosclerosis of native arteries of right leg with ulceration of other part of foot; L97.512 Non-pressure chronic ulcer of other part of right foot with fat layer exposed; T81.89XD Other complications of procedures, not elsewhere classified, subsequent encounter; E11.69 Type 2 diabetes mellitus with other specified complication; M86.071 Acute hematogenous osteomyelitis, right ankle and foot; E11.52 Type 2 diabetes mellitus with diabetic peripheral angiopathy with gangrene; I96 Gangrene, not elsewhere classified; E11.42 Type 2 diabetes mellitus with diabetic polyneuropathy; E11.618 Type 2 diabetes mellitus with other diabetic arthropathy; I11.0 Hypertensive heart disease with heart failure; I50.23 Acute on chronic systolic (congestive) heart failure; I48.91 Unspecified atrial fibrillation; I25.10 Atherosclerotic heart disease of native coronary artery without angina pectoris; E66.9 Obesity, unspecified; E78.5 Hyperlipidemia, unspecified; F17.210 Nicotine dependence, cigarettes, uncomplicated; Z95.5 Presence of coronary angioplasty implant and graft; Z68.30 Body mass index [BMI] 30.0-30.9, adult; Z95.820 Peripheral vascular angioplasty status with implants and grafts; Z79.01 Long term (current) use of anticoagulants; Z79.82 Long term (current) use of aspirin; Z79.84 Long term (current) use of oral hypoglycemic drugs; Z79.02 Long term (current) use of antithrombotics/antiplatelets; Z89.519 Acquired absence of unspecified leg below knee; Z86.14 Personal history of Methicillin resistant Staphylococcus aureus infection; Y83.5 Amputation of limb(s) as the cause of abnormal reaction of the patient, or of later complication, without mention of misadventure at the time of the procedure; Y83.8 Other surgical procedures as the cause of abnormal reaction of the patient, or of later complication, without mention of misadventure at the time of the procedure
CPT/HCPCS: 97597; 97598

== ENCOUNTER 2019-11-13 09:05 | Outpatient (CLI) | payer BC | END 2019-11-13 23:59 | disposition home or self-care (01) | LOC: WOUND 09:05 | PROVIDERS: ATTEND Internal Medicine | DX: T87.89 Other complications of amputation stump (principal); I70.235 Atherosclerosis of native arteries of right leg with ulceration of other part of foot; L97.512 Non-pressure chronic ulcer of other part of right foot with fat layer exposed; T81.89XD Other complications of procedures, not elsewhere classified, subsequent encounter; E11.69 Type 2 diabetes mellitus with other specified complication; M86.071 Acute hematogenous osteomyelitis, right ankle and foot; E11.52 Type 2 diabetes mellitus with diabetic peripheral angiopathy with gangrene; I96 Gangrene, not elsewhere classified; E11.42 Type 2 diabetes mellitus with diabetic polyneuropathy; E11.618 Type 2 diabetes mellitus with other diabetic arthropathy; I11.0 Hypertensive heart disease with heart failure; I50.23 Acute on chronic systolic (congestive) heart failure; I48.91 Unspecified atrial fibrillation; I25.10 Atherosclerotic heart disease of native coronary artery without angina pectoris; E66.9 Obesity, unspecified; E78.5 Hyperlipidemia, unspecified; F17.210 Nicotine dependence, cigarettes, uncomplicated; Z95.5 Presence of coronary angioplasty implant and graft; Z68.30 Body mass index [BMI] 30.0-30.9, adult; Z95.820 Peripheral vascular angioplasty status with implants and grafts; Z79.01 Long term (current) use of anticoagulants; Z79.82 Long term (current) use of aspirin; Z79.84 Long term (current) use of oral hypoglycemic drugs; Z79.02 Long term (current) use of antithrombotics/antiplatelets; Z89.519 Acquired absence of unspecified leg below knee; Z86.14 Personal history of Methicillin resistant Staphylococcus aureus infection; Y83.5 Amputation of limb(s) as the cause of abnormal reaction of the patient, or of later complication, without mention of misadventure at the time of the procedure; Y83.8 Other surgical procedures as the cause of abnormal reaction of the patient, or of later complication, without mention of misadventure at the time of the procedure | CPT/HCPCS: 99215 ==